=== PATIENT | male | born 1960 | race Caucasian/White ===

== ENCOUNTER → 2021-04-01 | Outpatient (CLI) | payer MEDICARE, OTHER ==
[~2021-04-01] MED LIST: ADULT LOW DOSE81 MG PO; ALAVERT10 MG; ASPIRIN81 MG PO; AUGMENTIN 875875 M1; BUDEPRION SR150 MG; CARVEDILOL6.25 MG PO; CELEXA 20 MG TA20 MG PO; CHANTIX1 MG PO; CLONAZEPAM 1 MG1 M1 PO; FISH OIL500 MG PO; HYDROCODON-ACE1 EACH; LIALDA1.2 GM PO; LIDOCREAM5 GM TP; MEDROL DOSPAK21 TA1; MULTI-VITAMIN1 EAC5 PO; NORCO 5-325 TA1 EAC1 PO; NORCO 5-325 TA1 EACH PO; TAMSULOSIN HCL0.4 M1; VALACYCLOVIR1000 MG PO; VALTREX 500 MG500 MG PO; ZOCOR PO; ZOCOR40 MG PO; ZOLOFT 50 MG TA50 MG PO
== END ==
LOC: M.MRI 03-12 14:55 → M.CT 12:08
PROVIDERS: ATTEND Nurse Practitioner Family
DX: M19.031 Primary osteoarthritis, right wrist (principal); J98.4 Other disorders of lung; I25.10 Atherosclerotic heart disease of native coronary artery without angina pectoris; R05 Cough; M25.831 Other specified joint disorders, right wrist; Z79.899 Other long term (current) drug therapy; Z87.891 Personal history of nicotine dependence